=== PATIENT | female | born 1975 | race Caucasian/White ===

== ENCOUNTER 2019-06-13 06:06 | Day surgery (SDC) | payer MEDICAID ==
[2019-06-13] MEDS ORDERED: Dextrose 5%-Lactated Ringers 1,000 ML IV SCH (06:30)
[2019-06-13] MEDS ORDERED: Propofol 200 MG/20 ML SDV ONE (07:08)
[2019-06-13] MEDS ORDERED: fentaNYL 100 MCG/2 ML SDV ONE (07:08)
[2019-06-13] MEDS ORDERED: Midazolam 1 MG/ML 2 ML SDV ONE (07:08)
[2019-06-13] MEDS ORDERED: Glycopyrrolate 0.2 MG/ML 2 ML SDV IVPUSH ONE (07:45)
--- NOTE | 2019-06-19 15:11 | OR ---
DATE OF PROCEDURE: 06/13/2019 SURGEON: Omkar Kim MD PREOPERATIVE DIAGNOSIS: Worsening gastroesophageal reflux disease. POSTOPERATIVE DIAGNOSIS: Worsening gastroesophageal reflux disease with: 1. 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 2. Multiple gastric fundic polyps. 3. Separate polyp within distal esophagus. 4. Patchy antral gastritis. OPERATIVE PROCEDURE: Esophagogastroduodenoscopy with: 1. Polypectomy of distal esophagus by snare technique (82731). 2. Biopsies of esophagogastric junction for histologic evaluation. 3. Polypectomy of gastric fundic polyp by snare technique ([id number]). 4. Biopsies of antrum for CLOtest (08779). ANESTHESIA: IV sedation. INDICATION FOR PROCEDURE: This is a 44-year-old female presenting with gradually worsening gastroesophageal reflux disease. The patient Protonix 40 mg a day. Earlier, this was working quite well, but recently has been somewhat marginal in terms of symptom control. Plan is to proceed with upper GI endoscopy with biopsies as indicated. Potential risks including bleeding and perforation were discussed, and the patient wishes to proceed. DETAILS OF PROCEDURE: The patient was taken to the operating room and placed in a left lateral decubitus position. IV sedation was administered after which the upper GI endoscope was passed orally through the length of the esophagus, into the stomach with retroflexion view of the fundus, and thereafter through the pyloric channel and into the proximal duodenum. Findings included normal hypopharynx, larynx, upper esophageal sphincter. In the distal esophageal body, a small, roughly 2 to 3 mm polyp was identified. 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 Within the proximal stomach, there were multiple gastric fundic polyps consistent with longstanding PPI use and some patchy redness in the antrum. Pyloric channel and the duodenum to the junction of the 3rd and 4th portions were unremarkable. At this point, biopsies were obtained from the antrum and sent for CLOtest for H. pylori. Multiple biopsies were then obtained from the esophagogastric junction and sent for histologic evaluation. One of the gastric polyps was then removed by means of a snare technique under histologic evaluation and the distal esophageal polyp was likewise excised by means of snare technique and sent separately for histologic evaluation as well. The procedure then concluded. The patient was taken to the recovery room in satisfactory condition. The plan will be to see the patient back next Wednesday for followup and discussion of long- term treatment options. Omkar Kim MD /[id number]
== END 2019-06-13 10:15 | disposition home or self-care (01) ==
LOC: JP.SDS 06:06
PROVIDERS: ATTEND Surgery
DX: K21.0 Gastro-esophageal reflux disease with esophagitis (principal); K31.7 Polyp of stomach and duodenum; K22.8 Other specified diseases of esophagus; I10 Essential (primary) hypertension
CPT/HCPCS: 43239; 43251; 87081; J2250; J2704; J3010; J3490; J7121; 88305

== ENCOUNTER → 2023-06-24 | Day surgery (SDC) | payer MEDICAID ==
[~2023-06-24] MED LIST: Midazolam 1 MG/ML 2 ML SDV ONE; Propofol 200 MG/20 ML SDV ONE; Sodium Chloride 0.9% 1,000 ML IV SCH; fentaNYL 100 MCG/2 ML SDV ONE
== END ==
LOC: JP.SDS 06:44
PROVIDERS: ATTEND Surgery
DX: Z12.11 Encounter for screening for malignant neoplasm of colon (principal); K21.00 Gastro-esophageal reflux disease with esophagitis, without bleeding; K22.89 Other specified disease of esophagus
CPT/HCPCS: 43239; 45378; J2250; J2704; J3010; 88305